=== PATIENT | male | born 1980 | race Caucasian/White ===

== ENCOUNTER 2018-05-22 11:10 | Emergency (ER) | payer MEDICAID ==
[2018-05-22] MEDS: HYDROCODONE/APAP (10/325) TAB PO (11:36)
[2018-05-22] MEDS: DIPHTH/TET/ACEL PERTUSS (ADULT) 0.5 ML VIAL IM* (11:38)
[2018-05-22] MEDS: LIDOCAINE 1% (MDV) 20 ML INJ SC (11:38)
== END 2018-05-22 14:42 | disposition home or self-care (01) ==
LOC: FTE 11:10
DX: S51.812A Laceration without foreign body of left forearm, initial encounter (principal); W29.3XXA Contact with powered garden and outdoor hand tools and machinery, initial encounter; Y92.9 Unspecified place or not applicable; Z23 Encounter for immunization
CPT/HCPCS: 12004; 73090; 90471; 90715; 99283-25

== ENCOUNTER 2018-05-24 09:51 | Emergency (ER) | payer MEDICAID | END 2018-05-24 10:50 | disposition home or self-care (01) | LOC: FTE 09:51 | DX: Z48.01 Encounter for change or removal of surgical wound dressing (principal) | CPT/HCPCS: 99281; Z7502 ==

== ENCOUNTER 2018-06-02 14:32 | Emergency (ER) | payer MEDICAID | END 2018-06-02 19:07 | disposition home or self-care (01) | LOC: FTE 14:32 | DX: Z48.01 Encounter for change or removal of surgical wound dressing (principal) | CPT/HCPCS: 99281; Z7502 ==

== ENCOUNTER 2018-06-12 08:48 | Emergency (ER) | payer MEDICAID | END 2018-06-12 09:27 | disposition home or self-care (01) | LOC: FTE 08:48 | DX: Z48.02 Encounter for removal of sutures (principal) | CPT/HCPCS: 99281; Z7502 ==